=== PATIENT | female | born 1980 | race Hispanic/Latino ===

== ENCOUNTER 2018-08-14 18:26 | Emergency (ER) | payer OTHER ==
[2018-08-14] MEDS ORDERED: ACETAMINOPHEN 325 MG TAB ONE (19:06)
[2018-08-14 19:33] LABS: APPEARANCE,URINE Clear (CLEAR); BILIRUBIN,URINE Negative (NEGATIVE); COLOR,URINE Yellow (YELLOW); GLUCOSE, URINE (UA) Negative (NEGATIVE); KETONES,URINE Negative (NEGATIVE); LEUKOCYTE ESTERASE ,URINE Small (NEGATIVE); NITRATE,URINE Negative (NEGATIVE); OCCULT BLOOD,URINE Negative (NEGATIVE); PROTEIN,URINE Negative (NEGATIVE)
[2018-08-14 19:33] LABS: RAPID GROUP A STREP NEGATIVE (NEGATIVE)
[2018-08-14 19:46] LABS: BACTERIA,URINE Many /HPF (None Seen); RBC,URINE None Seen /HPF (0-1)
[2018-08-14 19:52] LABS: HCG,QUAL RESULT NEGATIVE (NEGATIVE)
[2018-08-14] MEDS ORDERED: KETOROLAC TROMETHAMINE 60 MG/2 ML VIAL ONE (20:24)
== END 2018-08-14 20:49 | disposition home or self-care (01) ==
LOC: EDH 18:26
DX: J11.1 Influenza due to unidentified influenza virus with other respiratory manifestations (principal); Z72.0 Tobacco use
CPT/HCPCS: 81001; 81025; 87804 ×2; 87880; 96372; 99283; J1885